=== PATIENT | female | born 1970 | race Caucasian/White ===

== ENCOUNTER 2017-12-22 07:46 | Emergency (ER) | payer MEDICAID, MEDICARE ==
[~2017-12-22] VITALS: Ht 182.9 cm; Wt 61.2 kg
--- NOTE | 2017-12-22 08:05 | ED Syncope ---
General Chief Complaint: Dizziness/Syncope Stated Complaint: PASSED OUT WHILE VISITING PT IN HOSP Source of Information: Patient Exam Limitations: No Limitations History of Present Illness Date Seen by Provider: Dec 22, 2017 Time Seen by Provider: 07:51 Initial Comments Pt to ER from ICU where she was present for the of her father. She was witnessed fainting by medical staff in the room and falling backwards striking the back of her head. She was unconscious for about a minute. Had high heart rate and low oxygen sats and was put on oxygen and transported down in a c- collar to the ER for evaluation. At the time she got here she was alert conscious oriented awake breathing spontaneously and taken off the oxygen and satting 97 200% on room air. She has no significant respiratory disease. No history of seizure disorder. She does have a history of anxiety and with the recent traumatic event of the of her father she says she did take 2 mg of Xanax last night to help her sleep and had some alcohol about 2 days ago. She's not had anything to eat today. She does not have a history of diabetes. She is having a headache that is mild and not requiring any pain medicine but no pain elsewhere. She has a history of 12 years ago ankle surgery on the right. She's had a gastric bypass. Report was given by Dr. Esquivel over the phone that she witnessed the syncope and collapse and there does not seem to be in any seizure like activity rather just panic attack. Allergies and Home Medications Patient Home Medication List Home Medication List Reviewed: Yes Constitutional: No chills, No diaphoresis EENTM: No ear discharge, No ear pain, No double vision Respiratory: No short of breath Cardiovascular: No chest pain, No palpitations Gastrointestinal: No abdominal pain, No constipation, No diarrhea, No nausea Genitourinary: No discharge, No dysuria : No Musculoskeletal: No back pain, No joint pain, No muscle pain, No muscle weakness, No neck pain Past Ronmavc-Fczihx-Cwcgcp Hx Patient Social History Alcohol Use: Occasionally Uses Recreational Drug Use: No Smoking Status: Former Smoker Type Used: Cigarettes Recent Foreign Travel: No Contact w/Someone Who Travel: No Physical Exam Vital Signs Capillary Refill : Height, Weight, BMI Height: '" Weight: lbs. oz. kg; BMI Method: General Appearance: No Apparent Distress, WD/WN HEENT: PERRL/EOMI, TMs Normal, Normal ENT Inspection, Pharynx Normal, Moist Mucous Membranes, Other (negative for hemotympanum any him, hematoma, garza sign, raccoon eyes, tenderness to the scalp or neck.) Neck: Full Range of Motion, Normal Inspection, Non Tender, Supple Cardiovascular: Regular Rate, Rhythm, No Edema, Normal Peripheral Pulses Respiratory: Chest Non Tender, Lungs Clear, Normal Breath Sounds, No Accessory Muscle Use, No Respiratory Distress Gastrointestinal: Normal Bowel Sounds, Non Tender, Soft Extremities: Normal Capillary Refill, Normal Inspection, No Calf Tenderness Neurologic/Psychiatric: Alert, Oriented x3, No Motor/Sensory Deficits, Other ( sad affect, appropriate) Cranial Nerves: Normal Hearing, Normal Speech, PERRL Coordination/Gait: Normal Finger to Nose, Normal Gait Motor/Sensory: No Motor Deficit, No Sensory Deficit, No Pronator Drift Skin: Normal Color, Warm/Dry Progress/Results/Core Measures Progress Progress Note : Time: 08:05 Progress Note Appears to be a vasovagal syncope response to a panic attack secondary to the recent of her father in the ICU today. Her cervical spine collar was cleared at 0755 by clinical examination without any C-spine tenderness on full range of motion under load. We have offered her imaging of her C-spine and head versus observation and she has appropriately chosen to pursue observation. For the next 12 hours she will be with family. She is declining further workup or anything for her headache and this time so were going to allow her to go with some return precautions. Departure Impression Primary Impression: Syncope and collapse Additional Impression: Panic attack Disposition: 01 HOME, SELF-CARE Condition: Stable Departure-Patient Inst. Decision time for Depature: 08:07 Referrals: NO,LOCAL PHYSICIAN (PCP/Family) Primary Care Physician Patient Instructions: Concussion in Adults, Syncope (Fainting) (DC) Add. Discharge Instructions: If you have weakness loss of control your bowels or bladder, unstable walking, further falls or other worrisome symptoms he should return to the nearest ER for further evaluation otherwise you may follow-up with your primary care doctor as needed. Drink plenty of fluids and use Tylenol and Motrin as necessary for headache. If you begin to have a swelling knot on the back your head you can use an ice pack. All discharge instructions reviewed with patient and/or family. Voiced understanding. NAOMIE BURCH Dec 22, 2017 08:04
[2017-12-22] MEDS ORDERED: DICL35CA (08:09)
[2017-12-22] MEDS ORDERED: ESTR2TAB (08:09)
[2017-12-22 08:10] VITALS: BP 123/80
--- OUTSIDE RECORDS SUMMARY | 2017-12-22 21:57 | XMS REPORT | Continuity of Care Document ---
Author Author [facility] Address Unknown Phone Unavailable Allergies There is no data. Medications There is no data. Problems Date Dx Coded Attending Type Code Diagnosis Diagnosed By 11/05/2013 JUAN TUCKER PHD 311 DEPRESSIVE DISORDER NOS Procedures Code [place] [address] PSYCH DIAGNOSTIC EVALUATION 11/05/2013 Results There is no data. Encounters ACCT No. Visit Date/Time Discharge Status Pt. Type Provider Facility Loc./Unit Complaint [id number] 11/05/2013 13:47:00 11/05/2013 23:59:59 CLS Outpatient JUAN TUCKER PHD
--- OUTSIDE RECORDS SUMMARY | 2017-12-22 21:57 | XMS REPORT ---
Author Author JENNI JULIO [employer] Address Unknown Phone Unavailable Care Team Providers Care Academic Coach Name Role Phone JENNI JULIO CP Unavailable Allergies No Known Allergies Problems Problem Type Condition Code Onset Dates Condition Status Assessment Dental examination V72.2 Active Problem Depressive disorder, not elsewhere classified 311 Active Medications No Known Medications Procedures Procedure Coding System Code Date Billing Notes on claim CPT-4 EC109 Jan 25, 2015 Results No Known Results Summary Purpose eClinicalWorks Submission
== END 2017-12-22 08:10 | disposition home or self-care (01) ==
LOC: EDUNIT# 07:46 → ER 07:47
DX: F41.0 Panic disorder [episodic paroxysmal anxiety] (principal); R55 Syncope and collapse; Z98.84 Bariatric surgery status; Z87.891 Personal history of nicotine dependence
CPT/HCPCS: 99283

== ENCOUNTER → 2019-10-29 | Outpatient (CLI) | payer BC ==
[~2019-10-29] MED LIST: DICL35CA; ESTR2TAB; HOLD METFORMIN - RECEIVED CONTRAST 20 ML VIAL IV SCH; IOHEXOL 350 MG/ML 100 ML (OMNIPAQUE 350) VIAL IV ONE; NS 100 ML (IVPB) BAG IV ONE
[2019-10-29 08:52] LABS: BUN/CREATININE RATIO 23; CREATININE SERUM 0.73 MG/DL (0.60-1.30); GFR ESTIMATED > 60
[2019-10-29] MEDS: CATHETER FLUSH 10 ML SYR IV PRN ×2 (09:26→09:27)
--- NOTE | 2019-10-29 09:58 | Diagnostic Imaging Report ---
PROCEDURE: CT neck soft tissue with contrast. TECHNIQUE: Multiple contiguous axial images were obtained through the neck after the administration of contrast. Auto Exposure Controls were utilized during the CT exam to meet ALARA standards for radiation dose reduction. INDICATION: Chronic nose, throat and ear pain. Patient does have family history of throat carcinoma. Correlation is made with prior CT soft tissue neck study from 09/12/2011. FINDINGS: Visualized intracranial structures are unremarkable. Posterior nasopharynx, oropharynx and larynx are unremarkable. Tiny low densities bilateral thyroid lobes are noted, stable to perhaps slightly smaller on today's exam. Submandibular and parotid glands appear to be symmetric. A normal-sized jugulodigastric and posterior cervical chain lymph nodes are noted. No pathologically enlarged nodes are detected. No fluid collections are detected. There is a small mucous retention cyst or polyp in the right maxillary sinus. IMPRESSION: Overall stable CT soft tissue neck study when compared with exam from 09/12/2011. No neck mass or lymphadenopathy is identified. Bilateral thyroid nodules are stable. Dictated by: Dictated on workstation # [id number]
== END ==
LOC: RAD FS 07:58
PROVIDERS: ATTEND Otolaryngology Otolaryngology/Facial Plastic Surgery
DX: E04.2 Nontoxic multinodular goiter (principal)
CPT/HCPCS: 36415; 70491; 82565; 84520

== ENCOUNTER 2019-11-20 19:45 | Emergency (ER) | payer BC ==
[~2019-11-20] VITALS: Ht 180.3 cm; Wt 74.8 kg
[~2019-11-20 19:45] MED LIST changes: -HOLD METFORMIN - RECEIVED CONTRAST 20 ML VIAL IV SCH; -IOHEXOL 350 MG/ML 100 ML (OMNIPAQUE 350) VIAL IV ONE; -NS 100 ML (IVPB) BAG IV ONE
--- OUTSIDE RECORDS SUMMARY | 2019-11-20 19:54 | XMS REPORT ---
Author Ruth Santoyo Organization [facility] Address [address] [place] [address] Care Team Providers Care Appeals Coordinator Name Role Phone JUAN TUCKER Unavailable PROBLEMS Type Condition ICD9-CM Code FLD91-CK Code Onset Dates Condition S tatus SNOMED Code Problem Depressive disorder, not elsewhere classified F32. 9 Active [id number] Problem Vitamin D deficiency E55.9 Active [id number] ALLERGIES No Information ENCOUNTERS Encounter Location Date Diagnosis [facility] [address] [facility] [place] [address] Apr, Acute left ankle pain M25.572 and Left foot pain M79.672 [address] [address] [place] [address] Apr, Tick bite, initial encounter W57.XXXA and Vitamin D deficiency E55.9 [address] [address] [place] [address] Apr, Vitamin D deficiency E55.9 a nd Tick bite, initial encounter W57.XXXA [address] [address] [place] [address] Apr, Tick bite, initial encounter W57.XXXA ; Vitamin D deficiency E55.9 and Well woman exam (no gynecological exam) Z00.00 [address] [address] [place] [address] Mar, Screening mammogram, encount er for Z12.31 [facility] [id number] [place] [id number] Aug, Dental examination Z01.20 [facility] [address] [id number] Jan, 2015 Dental examination V72.2 [facility] [address] [id number] [place] [address] Nov, [facility] [address] [id number] [place] [address] Nov, [facility] [address] [id number] [place] [address] Nov, [facility] [address] [id number] [place] [address] Nov, [facility] [id number] [place] [address] Nov, [facility] [id number] [place] [address] Nov, [facility] [id number] [place] [address] Oct, [facility] [address] [id number] [place] [address] Oct, [facility] [id number] [place] [address] Oct, [facility] [address] [id number] [place] [address] Oct, IMMUNIZATIONS No Known Immunizations SOCIAL HISTORY Never Assessed REASON FOR VISIT PLAN OF CARE VITAL SIGNS MEDICATIONS No Known Medications RESULTS No Results PROCEDURES Procedure Date Ordered Result Body Site PSYCH DIAGNOSTIC EVALUATION November 05, 2013 INSTRUCTIONS MEDICATIONS ADMINISTERED No Known Medications MEDICAL (GENERAL) HISTORY Type Description Date Medical History Myalgia Medical History Lymphangioma, any site Surgical History shattered ankle x7 08/23 Surgical History Hysterectomy 2013 Surgical History Gastric Bypass 2014 Surgical History Gallbladder 2014 Surgical History oral surgery 04/30/19 Hospitalization History surgery
--- OUTSIDE RECORDS SUMMARY | 2019-11-20 19:55 | XMS REPORT ---
Author Ruth Santoyo Organization [facility] Address [address] [place] [address] Care Team Providers Care Registered Nurse Cardiac Name Role Phone JUAN TUCKER Unavailable PROBLEMS Type Condition ICD9-CM Code TBE24-OQ Code Onset Dates Condition S tatus SNOMED Code Problem Depressive disorder, not elsewhere classified F32. 9 Active [id number] Problem Vitamin D deficiency E55.9 Active 46941622 ALLERGIES No Information ENCOUNTERS Encounter Location Date Diagnosis [facility] [address] [facility] [place] [address] Apr, Acute left ankle pain M25.572 and Left foot pain M79.672 [address] [place] [address] Apr, Tick bite, initial encounter W57.XXXA and Vitamin D deficiency E55.9 [address] [place] [address] Apr, Vitamin D deficiency E55.9 a nd Tick bite, initial encounter W57.XXXA [address] [place] [address] Apr, Tick bite, initial encounter W57.XXXA ; Vitamin D deficiency E55.9 and Well woman exam (no gynecological exam) Z00.00 [address] [place] [address] Mar, Screening mammogram, encount er for Z12.31 [facility] [id number] [place] [phone] Aug, Dental examination Z01.20 [facility] [id number] [place] [id number] 09 Jan, 2015 Dental examination V72.2 [facility] [address] [facility] [place] [address] Nov, [facility] [address] [facility] [place] [address] Nov, [facility] [address] [facility] [place] [address] Nov, [facility] [id number] [place] [address] Nov, [facility] [id number] [place] [address] Nov, [facility] [id number] [place] [address] Nov, [facility] [id number] [place] [address] Oct, [facility] [address] [id number] [place] [address] Oct, [facility] [id number] [place] [address] Oct, [facility] [address] [id number] [place] [address] Oct, IMMUNIZATIONS No Known Immunizations SOCIAL HISTORY Never Assessed REASON FOR VISIT PLAN OF CARE VITAL SIGNS MEDICATIONS No Known Medications RESULTS No Results PROCEDURES No Known procedures INSTRUCTIONS MEDICATIONS ADMINISTERED No Known Medications MEDICAL (GENERAL) HISTORY Type Description Date Medical History Myalgia Medical History Lymphangioma, any site Surgical History shattered ankle x7 08/23 Surgical History Hysterectomy 2013 Surgical History Gastric Bypass 2014 Surgical History Gallbladder 2013 Surgical History oral surgery 04/30/19 Hospitalization History surgery
--- OUTSIDE RECORDS SUMMARY | 2019-11-20 19:55 | XMS REPORT ---
Author Author Ruth TUCKER Organization [facility] Address [address] [place] [address] Care Team Providers Care Project Management Name Role Phone JUAN TUCKER Unavailable PROBLEMS Type Condition ICD9-CM Code VTL83-VH Code Onset Dates Condition S tatus SNOMED Code Problem Depressive disorder, not elsewhere classified 311 Active [id number] ALLERGIES No Information ENCOUNTERS Encounter Location Date Diagnosis [facility] [address] [id number] [address] [place] [id number] Aug, Dental examination Z01.20 [facility] [address] [id number] [address] [place] [id number] Jan, Dental examination V72.2 [facility] [address] [id number] [address] [place] [address] Nov, [facility] [address] [id number] [address] [place] [address] Nov, [facility] [address] [id number] [address] [place] [address] Nov, [facility] [address] [id number] [address] [place] [address] Nov, [facility] [address] [id number] [address] [place] [address] Nov, [facility] [address] [id number] [address] [place] [address] Nov, [facility] [address] [id number] [address] [place] [phone] Oct, [facility] [address] [id number] [address] [place] [phone] Oct, [facility] [address] [facility] [id number] [address], [place] [address] Oct, [facility] [address] [facility] [id number] [address], [place] [address] Oct, IMMUNIZATIONS No Known Immunizations SOCIAL HISTORY Never Assessed REASON FOR VISIT PLAN OF CARE VITAL SIGNS MEDICATIONS No Known Medications RESULTS No Results PROCEDURES No Known procedures INSTRUCTIONS MEDICATIONS ADMINISTERED No Known Medications MEDICAL (GENERAL) HISTORY Type Description Date Surgical History shattered ankle 08/23 Surgical History Hysterectomy 2013 Surgical History Gastric Bypass 2014 Surgical History Gallbladder 2014
--- OUTSIDE RECORDS SUMMARY | 2019-11-20 19:55 | XMS REPORT | Continuity of Care Document ---
Author Organization Unknown Address Unknown Phone Unavailable Allergies Active Description Code Type Severity Reaction Onset Reported/Identified Relationship to Patient Clinical Status Yes No Known Drug Allergies [id number] Drug Allergy Unknown N/A 12/22/2017 Medications There is no data. 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 [place]IZ[place] 65 mL/min/1.73m2 > OR = 60 eGFR 75 mL/min/1.73m2 > OR = 60 BUN/CREATININE RATIO NOT APPLICABLE (calc) 6-22 SODIUM 139 mmol/L 135-146 POTASSIUM 4.2 mmol/L 3.5-5.3 CHLORIDE 103 mmol/L 98-110 CARBON DIOXIDE 23 mmol/L 20-32 CALCIUM 9.1 mg/dL 8.6-10.4 PROTEIN, TOTAL 6.6 g/dL 6.1-8.1 ALBUMIN 4.1 g/dL 3.6-5.1 GLOBULIN 2.5 g/dL (calc) 1.9-3.7 ALBUMIN/GLOBULIN RATIO 1.6 (calc) 1.0-2. 5 BILIRUBIN, TOTAL 0.3 mg/dL 0.2-1.2 ALKALINE PHOSPHATASE 46 U/L 33-130 AST 16 U/L 10-35 ALT 15 U/L 6-29 CBC - 05/05/19 10:13 WHITE BLOOD CELL COUNT 6.5 Thousand/uL 3 .8-10.8 RED BLOOD CELL COUNT 4.11 Million/uL 3.8 0-5.10 HEMOGLOBIN 12.9 g/dL 11.7-15.5 HEMATOCRIT 38.7 % 35.0-45.0 MCV 94.2 fL 80.0-100.0 MCH 31.4 pg 27.0-33.0 MCHC 33.3 g/dL 32.0-36.0 RDW 12.6 % 11.0-15.0 PLATELET COUNT 249 Thousand/uL 140-400 MPV 10.8 fL 7.5-12.5 ABSOLUTE NEUTROPHILS 3998 cells/uL 1500- 7800 ABSOLUTE LYMPHOCYTES 2002 cells/uL 850-3 900 ABSOLUTE MONOCYTES 429 cells/uL 200-950 ABSOLUTE EOSINOPHILS 33 cells/uL 15-500 ABSOLUTE BASOPHILS 39 cells/uL 0-200 NEUTROPHILS 61.5 % NRG LYMPHOCYTES 30.8 % NRG MONOCYTES 6.6 % NRG EOSINOPHILS 0.5 % NRG BASOPHILS 0.6 % NRG LYME, TOTAL ANTIBODY/REFLEX WESTERN BLOT - 05/05/19 10:13 LYME AB SCREEN <0.90 index NRG BRUNO - 05/05/19 10:13 BRUNO SCREEN, IFA NEGATIVE NEGATIVE TSH - 05/05/19 10:13 TSH 0.43 mIU/L NRG VITAMIN D, 25-H - 05/05/19 10:13 VITAMIN D,25-OH,TOTAL,IA 31 ng/mL 30-10 0 [place] DISEASE, ANTIBODY PANEL - 10:13 LYME AB SCREEN <0.90 index NRG INTERPRETATION NRG A. PHAGOCYTOPHILUM AB (IGG) <1:64 NR G A. PHAGOCYTOPHILUM AB (IGM) <1:20 NR G INTERPRETATION NRG BABESIA DUNCANI (WA1) ANTIBODY (IGG), IFA <1:256 NRG BABESIA MICROTI AB (IGG) <1:64 titer NRG BABESIA MICROTI AB (IGM) <1:20 titer NRG INTERPRETATION NRG E. CHAFFEENSIS AB IGG <1:64 NRG E. CHAFFEENSIS AB IGM <1:20 NR COVID-19 ([facility]) - 09/14/19 12:00 CULTURE, THROAT - 09/14/19 12:08 CULTURE, THROAT SEE NOTE [facility] COVID-19 ([facility]) - 10/04/19 11:19 CMP - 10/04/19 16:57 GLUCOSE 95 mg/dL 65-99 UREA NITROGEN (BUN) 16 mg/dL 7-25 CREATININE 0.76 mg/dL 0.50-1.05 eGFR NON-AFR. [place] 91 mL/min/1.73m2 > OR = 60 eGFR 106 mL/min/1.73m2 > OR = 60 BUN/CREATININE RATIO NOT APPLICABLE (calc) 6-22 SODIUM 141 mmol/L 135-146 POTASSIUM 4.1 mmol/L 3.5-5.3 CHLORIDE 106 mmol/L 98-110 CARBON DIOXIDE 25 mmol/L 20-32 CALCIUM 8.8 mg/dL 8.6-10.4 PROTEIN, TOTAL 6.7 g/dL 6.1-8.1 ALBUMIN 4.1 g/dL 3.6-5.1 GLOBULIN 2.6 g/dL (calc) 1.9-3.7 ALBUMIN/GLOBULIN RATIO 1.6 (calc) 1.0-2. 5 BILIRUBIN, TOTAL 0.3 mg/dL 0.2-1.2 ALKALINE PHOSPHATASE 60 U/L 37-153 AST 15 U/L 10-35 ALT 15 U/L 6-29 CBC w/MANUAL DIFF - 10/04/19 16:57 WHITE BLOOD CELL COUNT 5.9 Thousand/uL 3 .8-10.8 RED BLOOD CELL COUNT 4.07 Million/uL 3.8 0-5.10 HEMOGLOBIN 12.5 g/dL 11.7-15.5 HEMATOCRIT 37.2 % 35.0-45.0 MCV 91.4 fL 80.0-100.0 MCH 30.7 pg 27.0-33.0 MCHC 33.6 g/dL 32.0-36.0 RDW 12.3 % 11.0-15.0 PLATELET COUNT 222 Thousand/uL 140-400 MPV 10.3 fL 7.5-12.5 ABSOLUTE NEUTROPHILS 3098 cells/uL 1500- 7800 ABSOLUTE MONOCYTES 407 cells/uL 200-950 ABSOLUTE EOSINOPHILS 0 cells/uL 15-500 ABSOLUTE BASOPHILS 0 cells/uL 0-200 NEUTROPHILS 52.5 % NRG LYMPHOCYTES 38.6 % NRG MONOCYTES 6.9 % NRG EOSINOPHILS 0 % NRG BASOPHILS 0 % NRG ABSOLUTE BAND NEUTROPHILS 118 cells/uL 0 -750 ABSOLUTE LYMPHOCYTES 2277 cells/uL 850-3 900 BAND NEUTROPHILS 2.0 % NRG PLATELET ESTIMATION ADEQUATE ADEQUATE Encounters ACCT No. Visit Date/Time Discharge Status Pt. Type Provider Facility Loc./Unit Complaint [id number] 11/05/2013 13:47:00 11/05/2013 23:59: 59 CLS Outpatient CAITLIN JOSUE, JUAN Nation [id number] 11/03/2019 14:30:00 11/03/2019 23:59:5 9 CLS Outpatient SAUL, CINDY Rudolph [facility] [id number] 10/04/2019 16:40:00 Document Registration [id number] 10/04/2019 10:40:00 Document Registration [id number] 09/14/2019 17:40:00 Document Registration [id number] 05/05/2019 09:30:00 Document Registration [id number] 10/29/2019 07:58:00 020 23:59:59 CLS Outpatient BROOKLYNN MILLER, KEYONA Son Via [facility] [place] RAD FS ABNORMAL EAR/THROAT GARIMA N [id number] 12/22/2017 07:47:00 Document Registration
--- OUTSIDE RECORDS SUMMARY | 2019-11-20 19:55 | XMS REPORT ---
Author Author Ruth TUCKER Organization [facility] Address [address] [place] [address] Care Team Providers Care Environmental Associate Name Role Phone JAUN TUCKER Unavailable PROBLEMS Type Condition ICD9-CM Code XLW12-ZQ Code Onset Dates Condition S tatus SNOMED Code Problem Depressive disorder, not elsewhere classified 311 Active 40009959 ALLERGIES No Information ENCOUNTERS Encounter Location Date Diagnosis [facility] [address] [id number] [address] [place] [id number] Aug, Dental examination Z01.20 [facility] [address] [id number] [address] [place] [id number] Jan, Dental examination V72.2 [facility] [address] [id number] [address] [place] [phone] Nov, [facility] [address] [id number] [address] [place] [phone] Nov, [facility] [address] [id number] [address] [place] [phone] Nov, [facility] [address] [id number] [address] [place] [phone] Nov, [facility] [address] [id number] [address] [place] [phone] Nov, [facility] [address] [id number] [address] [place] [address] Nov, [facility] [address] [id number] [address] [place] [phone] Oct, [facility] [address] [id number] [address] [place] [phone] Oct, [facility] [address] [facility] [id number] [address], [place] [address] Oct, [facility] [address] [facility] [id number] [address], [place] [address] Oct, IMMUNIZATIONS No Known Immunizations SOCIAL HISTORY [...]
--- OUTSIDE RECORDS SUMMARY | 2019-11-20 19:55 | XMS REPORT ---
Author Author Ruth TUCKER Organization [facility] Address [address] [place] [address] Care Team Providers Care Wool Washer Name Role Phone JUAN TUCKER Unavailable PROBLEMS Type Condition ICD9-CM Code [id number] Code Onset Dates Condition S tatus SNOMED Code Problem Depressive disorder, not elsewhere classified 311 Active [id number] ALLERGIES No Information ENCOUNTERS Encounter Location Date Diagnosis [facility] [address] [id number] [address] [place] [id number] Aug, Dental examination Z01.20 [facility] [address] [id number] [address] [place] [phone] Jan, Dental examination V72.2 [facility] [address] [id number] [address] [place] [id number] Nov, [facility] [address] [id number] [address] [place] [phone] Nov, [facility] [address] [id number] [address] [place] [id number] Nov, [facility] [address] [id number] [address] [place] [phone] Nov, [facility] [address] [id number] [address] [place] [phone] Nov, [facility] [address] [id number] [address] [place] [phone] Nov, [facility] [address] [id number] [address] [place] [phone] Oct, [facility] [address] [id number] [address] [place] [phone] Oct, [facility] [address] [facility] [id number] [address] [address] Oct, [facility] [address] [facility] [id number] [address], [place] [address] Oct, IMMUNIZATIONS No Known Immunizations SOCIAL HISTORY [...]
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
--- NOTE | 2019-11-20 20:48 | Diagnostic Imaging Report ---
EXAMINATION: Thoracic spine radiographs, 3 views. COMPARISON: None. HISTORY: 48-year-old female, injury. Back pain. FINDINGS: There is no identified acute fracture. The alignment of the thoracic spine is unremarkable. The thoracic disc heights are relatively well preserved. Right upper quadrant surgical clips most likely relate to prior cholecystectomy. There are sutures at the level of the upper abdomen just to the left of midline. IMPRESSION: Unremarkable radiographs of the thoracic spine. Dictated by: Dictated on workstation # [id number]
--- NOTE | 2019-11-20 20:56 | Diagnostic Imaging Report ---
EXAMINATION: Lumbar spine radiographs, 2 views. COMPARISON: None. HISTORY: 48-year-old female, injury. Back pain. 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 If spinal intervention is to be performed in the future, recommend careful correlation with levels. There is no identified compression deformity or fracture. The lumbar disc heights are well preserved. The facet joints are grossly unremarkable. Unremarkable appearance of the sacroiliac joints. IMPRESSION: 1. No identified acute abnormality of the lumbar spine. 2. 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 If spinal intervention is to be performed in the future, recommend careful correlation with levels. Dictated by: Dictated on workstation # [id number]
--- NOTE | 2019-11-20 20:58 | Diagnostic Imaging Report ---
PROCEDURE: CT head and CT cervical spine without contrast. TECHNIQUE: Multiple contiguous axial images were obtained through the brain and cervical spine without the use of intravenous contrast. Sagittal and coronal reformations through the cervical spine were then performed. Auto Exposure Controls were utilized during the CT exam to meet ALARA standards for radiation dose reduction. INDICATION: Injury, accident, pain. COMPARISON: CT of the neck dated November 20, 2019. FINDINGS: No intracranial hemorrhage. No intracranial mass, mass effect, midline shift, herniation, hydrocephalus or extra-axial fluid collection. No CT evidence of an acute ischemic infarction. The orbits are unremarkable. The paranasal sinuses are clear. The calvarium and extracalvarial soft tissues are unremarkable. Slight reversal of the normal cervical lordosis, though this is stable from the prior examination. No significant anterolisthesis or retrolisthesis. Alignment of the atlantooccipital joint is well maintained. Vertebral body heights are well maintained. Mild disc space height loss at C5/C6. No acute fracture or dislocation. No destructive osseous process. Mild scattered degenerative changes without severe osseous central canal stenosis. The thyroid gland is diffusely heterogeneous and nodular, including an 8 mm nodule within the right thyroid lobe. Paraspinal soft tissues otherwise appears stable from the prior exam and are unremarkable. IMPRESSION: 1. No acute intracranial abnormality. 2. No acute osseous abnormality within the cervical spine with mild degenerative changes and stable reversal of the normal cervical lordosis. 3. Stable thyroid gland heterogeneity and nodularity. Dictated by: Dictated on workstation # [id number]
[2019-11-20] MEDS ORDERED: ONDANSETRON 4 MG (ZOFRAN) ORAL DISSOLVE TAB PO STA (21:09)
[2019-11-20] MEDS ORDERED: IBUP-1780 PO (21:12)
[2019-11-20] MEDS ORDERED: CYCL10TA9 PO (21:12)
[2019-11-20 21:15] VITALS: BP 113/60
[2019-11-20] MEDS ORDERED: IBUPROFEN 800 MG (MOTRIN) TAB PO ONE (21:15)
== END 2019-11-20 21:16 | disposition home or self-care (01) ==
LOC: EDUNIT# 19:45 → ER FS 19:50
DX: S06.9X9A Unspecified intracranial injury with loss of consciousness of unspecified duration, initial encounter (principal); S16.1XXA Strain of muscle, fascia and tendon at neck level, initial encounter; S29.019A Strain of muscle and tendon of unspecified wall of thorax, initial encounter; S39.012A Strain of muscle, fascia and tendon of lower back, initial encounter; Z87.891 Personal history of nicotine dependence; V94.89XA Other water transport accident, initial encounter
CPT/HCPCS: 70450; 72070; 72100; 72125

== ENCOUNTER 2022-03-10 14:36 | Emergency (ER) | payer BC ==
[~2022-03-10] VITALS: Ht 180 cm; Wt 79.3 kg
[~2022-03-10 14:36] MED LIST changes: +CYCL10TA25 PO; -ESTR2TAB; +ESTR2TAB3; +IBUP-1780 PO
[2022-03-10] MEDS ORDERED: morphine INJ 10 MG/ML 1ML (SYR OR VIAL) ONE (14:46)
[2022-03-10] MEDS ORDERED: morphine INJ 10 MG/ML 1ML (SYR OR VIAL) IVP STA (14:47)
[2022-03-10] MEDS ORDERED: ONDANSETRON 4 MG (ZOFRAN) ORAL DISSOLVE TAB ONE (14:47)
--- NOTE | 2022-03-10 14:49 | ED Trauma-Multisystem ---
General Chief Complaint: Trauma-Non Activation Stated Complaint: FALL Source of Information: Patient, EMS Exam Limitations: No Limitations History of Present Illness Date Seen by Provider: Mar 10, 2022 Time Seen by Provider: 14:38 Initial Comments Ruth is a 51-year-old female who presents to the emergency room with a chief complaint of low back pain and left hip pain after falling from a horse just prior to arrival. Patient states that she is not sure what spooked the horse but she states that she was on it 1 minute and the next minute she found herself on the ground. She states that she did not lose consciousness. She does not have a headache. No vision changes. She denies neck pain, chest pain, abdomina l pain. No upper extremity or lower extremity discomfort. No numbness, weakness or tingling. She complains of intense pain to the backside of her left hip that does not radiate. Also her low back. She is not anticoagulated on any medications. No recent illnesses. She arrives on EMS stretcher without cervical spine immobilization. All other review of systems reviewed and negative except as stated. Occurred: Just Prior to Arrival Severity: Severe Pain/Injury Location: Pelvis (left) Method of Injury: Fall (from horse 15 hands) Modifying Factors: Immobilization; No Jarring, No Movement Loss of Consciousness: No Loss of Consciousness Associated Symptoms (Fall): Nausea/Vomiting (nausea without vomiting) Allergies and Home Medications Allergies Coded Allergies: No Known Drug Allergies (Unverified , 12/22/17) Patient Home Medication List Home Medication List Reviewed: Yes Cyclobenzaprine HCl (Cyclobenzaprine HCl) 10 Mg Tablet, 10 MG PO Q8H PRN for SPASMS Prescribed by: RASHMI LOPEZ on 11/20/192111 Diclofenac Submicronized (Zorvolex) 35 Mg Capsule, (Reported) Entered as Reported by: MEAGHAN LAM on 12/22/17 08 Estradiol (Estradiol Tablet) 2 Mg Tablet, (Reported) Entered as Reported by: MEAGHAN LAM on 12/22/17808 Ibuprofen (Ibuprofen) 800 Mg Tablet, 800 MG PO Q8H PRN for PAIN Prescribed by: RASHMI LOPEZ on 11/20/192111 Oxycodone HCl/Acetaminophen (Percocet 7.5-325 mg Tablet) 1 Each Tablet, 1 TAB PO Q6H PRN for PAIN-MODERATE Prescribed by: EVANS STARR on 03/10/22 1644 Review of Systems Review of Systems Constitutional: see HPI Eyes: No Symptoms Reported Ears: No Symptoms Reported Nose: No Symptoms Reported Mouth: No Symptoms Reported Throat: No Symptoms to Report Respiratory: no symptoms reported Cardiovascular: No Symptoms Reported Gastrointestinal: nausea Musculoskeletal: back pain (lowe), joint pain (left hip) Skin: no symptoms reported Psychiatric/Neurological: No Symptoms Reported All Other Systems Reviewed Negative Unless Noted: Yes Past Fplxvbv-Qqlayt-Edzhan Hx Patient Social History Tobacco Use?: No Substance use?: No Alcohol Use?: Yes Alcohol Frequency: Couple times a week Pt feels they are or have been: No Seasonal Allergies Seasonal Allergies: No Past Medical History Gallbladder, Hysterectomy, Orthopedic Respiratory: No Cardiac: No Neurological: No [employer] History: Hysterectomy Genitourinary: No Gastrointestinal: Yes (GASTRIC SLEEVE) Musculoskeletal: Yes (RIGHT ANKLE AND LEG ) Fractures HEENT: No Cancer: No Psychosocial: No Integumentary: No Blood Disorders: No Physical Exam Vital Signs Vital Signs - First Documented 03/10/22 14:50 Temp 37.1 Pulse 67 Resp 18 B/P (MAP) 115/67 (83) Pulse Ox 98 Height, Weight, BMI Height: 6'0" Weight: 135lbs. oz. 61.645965ht; 23.00 BMI Method:Stated General Appearance: WD/WN, Anxious, Thin Head: No Evidence of Injury; No Chen's Sign, No Contusions, No Ecchymosis, No Lacerations, No Raccoon Eyes, No Swelling, No Tenderness Eyes: Bilateral Eye Normal Inspection, Bilateral Eye PERRL, Bilateral Eye EOMI Ears, Nose, Throat: Hearing Grossly Normal, No Evidence of ENT Injury, No Denta l Injury Neck: Normal Inspection, Non Tender, Supple Cardiovascular: Regular Rate, Rhythm Respiratory: Chest Non Tender, Lungs Clear, Normal Breath Sounds, No Accessory Muscle Use, No Respiratory Distress Gastrointestinal: Normal Bowel Sounds, Non Tender, Soft Back: Normal Inspection, Vertebral Tenderness (over Lumbar L3-5 and left posterior superior iliac crest) Extremity: Normal Capillary Refill, Normal Inspection, Normal Range of Motion, Non Tender, No Calf Tenderness, Other (left lateral hip tenderness; tenderness to compression left ASIS) Neurologic/Psychiatric: Alert, Oriented x3, No Motor/Sensory Deficits, Normal Mood/Affect, motel food service supervisor II-XII Norm as Tested Skin: Normal Color, Warm/Dry, Other (contusion/ecchymoses left lower back just above post sup iliac crest) [place] Coma Score Best Eye Response (Rachel): (4) Open Spontaneously Best Verbal Response (Rachel): (5) Oriented Best Motor Response ([place]): (6) Obeys Commands Progress/Results/Core Measures Results/Orders Lab Results Laboratory Tests Test 03/10/22 15:04 Range/Units White Blood Count 11.7 H 4.3-11.0 10^3/uL Red Blood Count 3.94 3.80-5.11 10^6/uL Hemoglobin 12.3 11.5-16.0 g/dL Hematocrit 37 35-52 % Mean Corpuscular Volume 93 80-99 fL Mean Corpuscular Hemoglobin 31 25-34 pg Mean Corpuscular Hemoglobin Concent 34 32-36 g/dL Red Cell Distribution Width 12.6 10.0-14.5 % Platelet Count 221 130-400 10^3/uL Mean Platelet Volume 10.2 9.0-12.2 fL Immature Granulocyte % (Auto) 2 % Neutrophils (%) (Auto) 78 H 42-75 % Lymphocytes (%) (Auto) 14 12-44 % Monocytes (%) (Auto) 5 0-12 % Eosinophils (%) (Auto) 0 0-10 % Basophils (%) (Auto) 0 0-10 % Neutrophils # (Auto) 9.1 H 1.8-7.8 10^3/uL Lymphocytes # (Auto) 1.6 1.0-4.0 10^3/uL Monocytes # (Auto) 0.6 0.0-1.0 10^3/uL Eosinophils # (Auto) 0.0 0.0-0.3 10^3/uL Basophils # (Auto) 0.1 0.0-0.1 10^3/uL Immature Granulocyte # (Auto) 0.2 H 0.0-0.1 10^3/uL Sodium Level 140 135-145 MMOL/L Potassium Level 3.6 3.6-5.0 MMOL/L Chloride Level 107 98-107 MMOL/L Carbon Dioxide Level 22 21-32 MMOL/L Anion Gap 11 5-14 MMOL/L Blood Urea Nitrogen 15 7-18 MG/DL Creatinine 0.81 0.60-1.30 MG/DL Estimat Glomerular Filtration Rate 87 BUN/Creatinine Ratio 19 Glucose Level 103 70-105 MG/DL Calcium Level 9.0 8.5-10.1 MG/DL Corrected Calcium 9.2 8.5-10.1 MG/DL Total Bilirubin 0.4 0.1-1.0 MG/DL Aspartate Amino Transf (AST/SGOT) 27 5-34 U/L Alanine Aminotransferase (ALT/SGPT) 15 0-55 U/L Alkaline Phosphatase 58 40-136 U/L Total Protein 6.7 6.4-8.2 GM/DL Albumin 3.8 3.2-4.5 GM/DL My Orders Orders - EVNAS STARR MD Morphine Injection (Morphine Injection (03/10/22 14:47) Ondansetron Oral Dissolve Tab (Zofran (03/10/22 15:00) Morphine Injection (Morphine Injection (03/10/22 14:46) Ondansetron Oral Dissolve Tab (Zofran (03/10/22 14:47) Ed Iv/Invasive Line Start (03/10/22 14:49) Cbc With Automated Diff (03/10/22 14:49) Comprehensive Metabolic Panel (03/10/22 14:49) Ct Abdomen/Pelvis W (03/10/22 14:49) Chest 1 View, Ap/Pa Only (03/10/22 14:49) Pelvis 1 To 2 Views (03/10/22 14:49) Ct Lumbar Spine Wo (03/10/22 14:49) Morphine Injection (Morphine Injection (03/10/22 14:55) Iohexol Injection (Omnipaque 350 Mg/Ml 1 (03/10/22 15:30) Received Contrast (Hold Metformin- Contr (03/10/22 15:30) Ns (Ivpb) (Sodium Chloride 0.9% Ivpb Bag (03/10/22 15:30) Ketorolac Injection (Toradol Injection) (03/10/22 16:00) Orphenadrine Inj (Ed Only) (Norflex Inje (03/10/22 16:00) Oxycodone/Apap 7.5/325mg Tab (Percocet (03/10/22 16:45) Medications Given in ED Vital Signs/I&O 03/10/22 03/10/22 03/10/22 14:50 15:13 18:00 Temp 37.1 37.1 Pulse 67 67 80 Resp 18 18 16 B/P (MAP) 115/67 (83) 115/67 (83) 100/65 Pulse Ox 98 98 98 Diagnostic Imaging Diagonstic Imaging: Xray Comments [facility] [place], [place] NAME: RUTH MONSON [facility] REC#: [id number] PT STATUS: REG ER : 1970 PHYSICIAN: EVANS STARR MD ADMIT DATE: 03/10/22/ER Signed Date of Exam:03/10/22 PELVIS 1 TO 2 VIEWS Pelvis 1 to 2 views INDICATION: Pelvic injury. COMPARISON: CT abdomen and pelvis from earlier the same day. TECHNIQUE: AP view of the pelvis. FINDINGS: Contrast material is present in the urinary bladder from recent CT abdomen and pelvis. No displaced fracture within the pelvis. Proximal femurs are intact. Symphysis pubis and SI joints are normal in alignment. IMPRESSION: No acute fracture or traumatic malalignment of the pelvis. Dictated by: Dictated on workstation # [id number] Dict: 03/10/22 1546 Trans: 03/10/22 155 [facility] [id number] Interpreted by: RUI CAMACHO MD Electronically signed by: RUI CAMACHO MD 03/10/22 1558 Diagonstic Imaging: CT Comments [facility] [place] [place], [place] NAME: RUTH MONSON [facility] REC#: [id number] PT STATUS: REG ER : 1970 PHYSICIAN: EVANS STARR MD ADMIT DATE: 03/10/22/ER Draft Date of Exam:03/10/22 CT LUMBAR SPINE WO PROCEDURE: CT lumbar spine without contrast. TECHNIQUE: Multiple contiguous axial images were obtained through the lumbar spine without the use of intravenous contrast. Sagittal and coronal reformations were then performed. Auto Exposure Controls were utilized during the CT exam to meet ALARA standards for radiation dose reduction. INDICATION: Fall from horse. Left lower back pain. COMPARISON: CT abdomen and pelvis without contrast also performed today. Lumbar spine radiographs 11/20/2019. FINDINGS: Normal alignment. Vertebral body heights are preserved. No fracture. Small central depression in the superior endplate of L2 appears chronic and likely due to a Schmorl's node. Minimal spondylotic changes. No evidence of high-grade spinal canal stenosis by CT. The visualized pelvis is intact. Partially visualized fluid collection compatible with a hematoma in the subcutaneous soft tissues dorsally along the midline measuring up to 13.6 cm in the superior-inferior dimension. IMPRESSION: 1. No acute CT finding in the lumbar spine. 2. Hematoma in the subcutaneous soft tissues along the midline dorsally is partially visualized. Dictated on workstation # [id number] Dict: 03/10/22 1540 Trans: 03/10/221547 [facility] [id number] Interpreted by: THALIA OCAMPO MD Electronically signed by: Diagonstic Imaging: Xray Plain Films/CT/US/NM/MRI: chest Comments [facility] [place] [place], [place] NAME: RUTH MONSON [facility] REC#: [id number] PT STATUS: REG ER : 1970 PHYSICIAN: EVANS STARR MD ADMIT DATE: 03/10/22/ER Signed Date of Exam:03/10/22 CHEST 1 VIEW, AP/PA ONLY CHEST 1 VIEW, AP/PA ONLY Indication: Chest pain. Comparison: None available. Findings: No focal airspace disease in the visualized lungs. No pleural effusion or pneumothorax. Normal cardiomediastinal silhouette. Impression: 1. No acute cardiopulmonary process by portable radiography. 2. Please note the left basilar pulmonary opacities seen on CT abdomen are not radiographically apparent. Dictated by: Dictated on workstation # [id number] Dict: 03/10/22 1545 Trans: 03/10/221545 [facility] [id number] Interpreted by: RUI CAMACHO MD Electronically signed by: RUI CAMACHO MD 03/10/22 154 Diagonstic Imaging: CT Plain Films/CT/US/NM/MRI: abdomen, pelvis Comments [facility] [place] [place] NAME: RUTH MONSON MED REC#: [id number] PT STATUS: REG ER : 1970 PHYSICIAN: EVANS STARR MD ADMIT DATE: 03/10/22/ER Draft Date of Exam:03/10/22 CT ABDOMEN/PELVIS W PROCEDURE: CT abdomen and pelvis with contrast. TECHNIQUE: Multiple contiguous axial images were obtained through the abdomen and pelvis after administration of intravenous contrast. Auto Exposure Controls were utilized during the CT exam to meet ALARA standards for radiation dose reduction. All CT scans use one or more of the following dose optimizing techniques: automated exposure control, MA and/or KvP adjustment based on patient size and exam type or iterative reconstruction. INDICATION: Fall from horse. Left lower back pain. COMPARISON: None. FINDINGS: Groundglass airspace opacity in the left lung base. Cholecystectomy. Small esophageal hiatal hernia. Postoperative changes in the stomach. The liver, pancreas, spleen, renals, kidneys, collecting systems and bladder are negative. Hysterectomy. No evidence of appendicitis. No free intraperitoneal air or fluid. No lymphadenopathy. No evidence of bowel obstruction or injury. Mild colonic diverticulosis without evidence of active diverticulitis. Soft tissue stranding in the subcutaneous tissues overlying the posterior left torso and gluteal region. This is most focal along the midline at the level of L4 where there is an 8.0 x 2.4 x 13.7 cm fluid collection compatible with a hematoma. No acute osseous finding. IMPRESSION: 1. Soft tissue stranding in the subcutaneous tissues overlying the posterior left torso and gluteal region consistent with contusion. There is also a more circumscribed fluid collection along the midline centered at the level of L4 measuring up to 13.7 cm compatible with a hematoma. 2. Airspace opacity in the left lung base could be due to aspiration or pulmonary contusion given the history of trauma. Infectious pneumonitis could have a similar appearance. 3. No acute osseous finding. Dictated on workstation # [id number] Dict: 03/10/22 1533 Trans: 03/10/22 1543 [facility] [id number] Interpreted by: THALIA OCAMPO MD Electronically signed by: Departure Impression Primary Impression: Traumatic hematoma of lower back Qualified Codes: S30.0XXA - Contusion of lower back and pelvis, initial encounter Disposition: 01 HOME, SELF-CARE Condition: Stable Departure-Patient Inst. Decision time for Depature: 16:11 Referrals: NO,LOCAL PHYSICIAN (PCP/Family) Primary Care Physician Patient Instructions: HEMATOMA Add. Discharge Instructions: Ice packs to the sore areas of your low back and left hip 20 minutes at a time every 2-4 hours as needed for pain. Alternate extra strength Tylenol and ibuprofen as needed for pain. I have given you a prescription for some percocet which is a narcotic. You can take 1 of these tablets every 6 hours as needed for more severe pain. You can take 1 extra strength Tylenol with a percocet as well. If you develop increasing redness or swelling in the area or any other associated worsening symptoms please come back to the emergency department for reevaluation. Rest, no vigorous exercise or horseback riding until the hematoma/pain is healed. Scripts Oxycodone HCl/Acetaminophen (Percocet 7.5-325 mg Tablet) 1 Each Tablet 1 TAB PO Q6H PRN for PAIN-MODERATE MDD 4 TABS, #15 TAB Prov: EVANS STARR MD 03/10/22 Work/School Note: Work Release Form Date Seen in the Emergency Department: Mar 10, 2022 Return to Work: Mar 14, 2022 EVANS STARR MD Mar 10, 2022 14:49
[2022-03-10] MEDS ORDERED: morphine INJ 10 MG/ML 1ML (SYR OR VIAL) IM STA (14:55)
[2022-03-10] MEDS ORDERED: ONDANSETRON 4 MG (ZOFRAN) ORAL DISSOLVE TAB PO ONE (15:00)
[2022-03-10 15:16] LABS: BASOPHILS # (AUTO) 0.1 10^3/uL (0.0-0.1); BASOPHILS % (AUTO) 0 % (0-10); EOSINOPHILS % (AUTO) 0 % (0-10); HEMATOCRIT 37 % (35-52); HEMOGLOBIN 12.3 g/dL (11.5-16.0); LYMPHOCYTES # (AUTO) 1.6 10^3/uL (1.0-4.0); LYMPHOCYTES % (AUTO) 14 % (12-44); MEAN CORPUSCULAR HEMOGLOBIN 31 pg (25-34); MEAN CORPUSCULAR HGB CONC 34 g/dL (32-36); MEAN CORPUSCULAR VOLUME 93 fL (80-99); MEAN PLATELET VOLUME 10.2 fL (9.0-12.2); MONOCYTES # (AUTO) 0.6 10^3/uL (0.0-1.0); MONOCYTES % (AUTO) 5 % (0-12); NEUTROPHILS # (AUTO) 9.1 10^3/uL (1.8-7.8); NEUTROPHILS % (AUTO) 78 % (42-75); PLATELET COUNT 221 10^3/uL (130-400); WHITE BLOOD COUNT 11.7 10^3/uL (4.3-11.0)
[2022-03-10 15:23] LABS: ALBUMIN 3.8 GM/DL (3.2-4.5); POTASSIUM 3.6 MMOL/L (3.6-5.0)
[2022-03-10 15:26] LABS: TOTAL PROTEIN 6.7 GM/DL (6.4-8.2)
[2022-03-10 15:28] LABS: BILIRUBIN,TOTAL 0.4 MG/DL (0.1-1.0)
[2022-03-10 15:29] LABS: CREATININE SERUM 0.81 MG/DL (0.60-1.30)
[2022-03-10] MEDS ORDERED: IOHEXOL 350 MG/ML 100 ML (OMNIPAQUE 350) VIAL IV ONE (15:30)
[2022-03-10] MEDS ORDERED: HOLD METFORMIN - RECEIVED CONTRAST 20 ML VIAL IV SCH (15:30)
[2022-03-10] MEDS ORDERED: NS 100 ML (IVPB) BAG IV ONE (15:30)
--- NOTE | 2022-03-10 15:43 | Diagnostic Imaging Report ---
PROCEDURE: CT abdomen and pelvis with contrast. TECHNIQUE: Multiple contiguous axial images were obtained through the abdomen and pelvis after administration of intravenous contrast. Auto Exposure Controls were utilized during the CT exam to meet ALARA standards for radiation dose reduction. All CT scans use one or more of the following dose optimizing techniques: automated exposure control, MA and/or KvP adjustment based on patient size and exam type or iterative reconstruction. INDICATION: Fall from horse. Left lower back pain. COMPARISON: None. FINDINGS: Groundglass airspace opacity in the left lung base. Cholecystectomy. Small esophageal hiatal hernia. Postoperative changes in the stomach. The liver, pancreas, spleen, renals, kidneys, collecting systems and bladder are negative. Hysterectomy. No evidence of appendicitis. No free intraperitoneal air or fluid. No lymphadenopathy. No evidence of bowel obstruction or injury. Mild colonic diverticulosis without evidence of active diverticulitis. Soft tissue stranding in the subcutaneous tissues overlying the posterior left torso and gluteal region. This is most focal along the midline at the level of L4 where there is an 8.0 x 2.4 x 13.7 cm fluid collection compatible with a hematoma. No acute osseous finding. IMPRESSION: 1. Soft tissue stranding in the subcutaneous tissues overlying the posterior left torso and gluteal region consistent with contusion. There is also a more circumscribed fluid collection along the midline centered at the level of L4 measuring up to 13.7 cm compatible with a hematoma. 2. Airspace opacity in the left lung base could be due to aspiration or pulmonary contusion given the history of trauma. Infectious pneumonitis could have a similar appearance. 3. No acute osseous finding. Dictated by: Dictated on workstation # [id number]
--- NOTE | 2022-03-10 15:48 | Diagnostic Imaging Report ---
CHEST 1 VIEW, AP/PA ONLY Indication: Chest pain. Comparison: None available. Findings: No focal airspace disease in the visualized lungs. No pleural effusion or pneumothorax. Normal cardiomediastinal silhouette. Impression: 1. No acute cardiopulmonary process by portable radiography. 2. Please note the left basilar pulmonary opacities seen on CT abdomen are not radiographically apparent. Dictated by: Dictated on workstation # [id number]
--- NOTE | 2022-03-10 15:48 | Diagnostic Imaging Report ---
PROCEDURE: CT lumbar spine without contrast. TECHNIQUE: Multiple contiguous axial images were obtained through the lumbar spine without the use of intravenous contrast. Sagittal and coronal reformations were then performed. Auto Exposure Controls were utilized during the CT exam to meet ALARA standards for radiation dose reduction. INDICATION: Fall from horse. Left lower back pain. COMPARISON: CT abdomen and pelvis without contrast also performed today. Lumbar spine radiographs 11/20/2019. FINDINGS: Normal alignment. Vertebral body heights are preserved. No fracture. Small central depression in the superior endplate of L2 appears chronic and likely due to a Schmorl's node. Minimal spondylotic changes. No evidence of high-grade spinal canal stenosis by CT. The visualized pelvis is intact. Partially visualized fluid collection compatible with a hematoma in the subcutaneous soft tissues dorsally along the midline measuring up to 13.6 cm in the superior-inferior dimension. IMPRESSION: 1. No acute CT finding in the lumbar spine. 2. Hematoma in the subcutaneous soft tissues along the midline dorsally is partially visualized. Dictated by: Dictated on workstation # [id number]
--- NOTE | 2022-03-10 15:50 | Diagnostic Imaging Report ---
Pelvis 1 to 2 views INDICATION: Pelvic injury. COMPARISON: CT abdomen and pelvis from earlier the same day. TECHNIQUE: AP view of the pelvis. FINDINGS: Contrast material is present in the urinary bladder from recent CT abdomen and pelvis. No displaced fracture within the pelvis. Proximal femurs are intact. Symphysis pubis and SI joints are normal in alignment. IMPRESSION: No acute fracture or traumatic malalignment of the pelvis. Dictated by: Dictated on workstation # [id number]
[2022-03-10] MEDS ORDERED: KETOROLAC 30 MG/ML VIAL IVP ONE (16:00)
[2022-03-10] MEDS ORDERED: ORPHENADRINE 60 MG/2 ML (NORFLEX) AMP (ED ONLY) IV ONE (16:00)
[2022-03-10] MEDS ORDERED: OXYC1TAB16 PO (16:43)
[2022-03-10] MEDS ORDERED: oxyCODONE/APAP 7.5-325 MG (PERCOCET 7.5) TABLET PO ONE (16:45)
[2022-03-10 18:00] VITALS: BP 100/65
== END 2022-03-10 18:00 | disposition home or self-care (01) ==
LOC: EDUNIT# 14:36 → ER 14:38
DX: S30.0XXA Contusion of lower back and pelvis, initial encounter (principal); M25.552 Pain in left hip; Z28.310 Unvaccinated for COVID-19; V80.010A Animal-rider injured by fall from or being thrown from horse in noncollision accident, initial encounter
CPT/HCPCS: 36415; 71045; 72131; 72170; 74177; 80053; 85025

== ENCOUNTER → 2022-03-13 | Outpatient (CLI) | payer BC ==
[~2022-03-13] MED LIST changes: +OXYC1TAB16 PO
--- NOTE | 2022-03-13 15:54 | Diagnostic Imaging Report ---
INDICATION: Chest pain, thrown from horse. PA and lateral chest obtained at 11:51 a.m. and compared to 03/10/2022. FINDINGS: Heart and mediastinal silhouette are normal in appearance. There is no pneumothorax or pleural fluid. There is no overt bony abnormality in the chest. There is bibasilar linear atelectatic change. IMPRESSION: Bibasilar subsegmental atelectasis. No pneumothorax or pleural fluid or consolidation. Dictated by: Dictated on workstation # [id number]
--- NOTE | 2022-03-13 16:34 | Diagnostic Imaging Report ---
INDICATION: Pain. COMPARISON: Imaging from same date and CT of the cervical spine dated 11/20/2019. TECHNIQUE: Two radiographs of the left shoulder dated 03/13/2022. FINDINGS: Moderate degenerative changes of the acromioclavicular joint. Sclerotic lesion within the glenoid is again identified and not significantly changed since 2019. Mildly displaced posterolateral left seventh rib fracture. No additional fracture or dislocation. No destructive osseous process. No suspicious radiopaque foreign body. IMPRESSION: Mildly displaced acute posterolateral left seventh rib fracture. No large-volume pleural effusion or pneumothorax. Moderate degenerative changes within the acromioclavicular joint. Dictated by: Dictated on workstation # [id number]
--- NOTE | 2022-03-13 16:37 | Diagnostic Imaging Report ---
INDICATION: Pain after being thrown off horse. COMPARISON: Imaging from the same date as well as radiograph of the chest from 03/10/2022. TECHNIQUE: Two radiographs of the left-sided ribs dated 03/13/2022. FINDINGS: Mild degenerative changes involving the acromioclavicular joint. Mildly displaced acute appearing posterolateral left seventh rib fracture. No additional displaced or healing left-sided rib fracture. Minimal opacities within the peripheral left lung base. No large left-sided pneumothorax. Surgical clips in the right upper abdomen. IMPRESSION: Mildly displaced posterolateral left seventh rib fracture, appearing acute. No large-volume pleural effusion or pneumothorax. Mild left basilar opacities, potentially related to contusion versus atelectasis or less likely pneumonitis. Dictated by: Dictated on workstation # [id number]
--- NOTE | 2022-03-13 17:58 | Diagnostic Imaging Report ---
INDICATION: Left hip pain post injury. AP and oblique views of the left hip are obtained. No fracture or acute bony abnormality seen. There is some chronic irregularity of the acetabular roof with may be developmental. IMPRESSION: No acute fracture of the left hip. Dictated by: Dictated on workstation # [id number]
--- NOTE | 2022-03-13 18:05 | Diagnostic Imaging Report ---
INDICATION: Back pain post falling from horse. TECHNIQUE: AP and lateral views and oblique views of the lumbar spine are obtained. FINDINGS: The lumbar vertebrae appear normal in height and alignment. There is no fracture or subluxation or compression deformity. There are minor osteophytes at L4. IMPRESSION: Minor degenerative findings with no acute-appearing abnormality in the lumbar spine. Dictated by: Dictated on workstation # [id number]
--- NOTE | 2022-03-13 18:10 | Diagnostic Imaging Report ---
INDICATION: Neck pain, status post fall from horse. AP, odontoid, and lateral views of the cervical spine are obtained. FINDINGS: Cervical vertebrae are normal in height and alignment. There is disc space narrowing and osteophyte formation at C5-C6. There is no acute fracture or subluxation. IMPRESSION: Degenerative changes at C5-C6 with no acute abnormality in the cervical spine. Dictated by: Dictated on workstation # [id number]
== END ==
LOC: RAD FS 11:22
PROVIDERS: ATTEND Family Medicine
DX: M25.511 Pain in right shoulder (principal); M25.512 Pain in left shoulder; R07.81 Pleurodynia; M25.552 Pain in left hip; M53.3 Sacrococcygeal disorders, not elsewhere classified; M54.2 Cervicalgia; V80.010S Animal-rider injured by fall from or being thrown from horse in noncollision accident, sequela; M54.50 Low back pain, unspecified
CPT/HCPCS: 71046; 71100; 72040; 72110; 73030; 73502

== ENCOUNTER → 2022-09-30 | Outpatient (CLI) | payer BC ==
--- NOTE | 2022-09-30 18:54 | Diagnostic Imaging Report ---
MRI RT LOWER EXT JOINT W/O TECHNIQUE: Multiplanar, multisequence MR imaging of the right knee was performed without contrast. COMPARISON: None available. INDICATION: Knee pain. FINDINGS: MENISCI Medial meniscus: Normal. Lateral meniscus: Normal. LIGAMENTS ACL: Intact. PCL: Intact. MCL: Intact. LCL: The lateral collateral ligamentous complex is intact. EXTENSOR MECHANISM The extensor mechanism is intact. CARTILAGE Medial compartment: Medial compartment articular cartilage is well preserved without focal high-grade chondromalacia. Lateral compartment: The lateral compartment articular cartilage is preserved without high-grade chondromalacia. Patellofemoral compartment: Multifocal partial-thickness chondral fibrillation throughout the medial patellar facet. BONE No fracture, stress fracture or osteonecrosis. SOFT TISSUE No knee effusion or Hinojosa's cyst. IMPRESSION: 1. 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 Medial and lateral compartment articular cartilage is well preserved. 2. No meniscal tear. Dictated by: Dictated on workstation # [id number]
== END ==
LOC: RAD 14:40
PROVIDERS: ATTEND Family Medicine
DX: M17.11 Unilateral primary osteoarthritis, right knee (principal)
CPT/HCPCS: 73721

== ENCOUNTER 2023-01-26 14:19 | Emergency (ER) | payer SELFPAY ==
[~2023-01-26] VITALS: Ht 180 cm; Wt 77.0 kg
--- NOTE | 2023-01-26 14:38 | ED Lower Extremity ---
General Chief Complaint: Lower Extremity Stated Complaint: INJ LEFT FOOT AND BACK Source: patient Exam Limitations: no limitations History of Present Illness Date Seen by Provider: Jan 26, 2023 Time Seen by Provider: 14:31 Initial Comments 52-year-old female presents to the ER with complaint of left ankle and left foot pain after a fall. She also complains of left lower back pain from the fall. Left ankle appears swollen, swelling also noted to left foot near fifth digit. Patient is tender to palpation in left lower back. No vertebral tenderness. No tenderness over pelvis. Allergies and Home Medications Allergies Coded Allergies: latex (Verified Allergy, Unknown, 01/26/23) Patient Home Medication List Home Medication List Reviewed: Yes Cyclobenzaprine HCl (Cyclobenzaprine HCl) 10 Mg Tablet, 10 MG PO Q8H PRN for SPASMS Prescribed by: RASHMI LOPEZ on 11/20/192111 Diclofenac Submicronized (Zorvolex) 35 Mg Capsule, (Reported) Entered as Reported by: MEAGHAN LAM on 12/22/17 0809 Estradiol (Estradiol Tablet) 2 Mg Tablet, (Reported) Entered as Reported by: MEAGHAN LAM on 12/22/17 08 Ibuprofen (Ibuprofen) 800 Mg Tablet, 800 MG PO Q8H PRN for PAIN Prescribed by: RASHMI LOPEZ on 11/20/192111 Oxycodone HCl/Acetaminophen (Percocet 7.5-325 mg Tablet) 1 Each Tablet, 1 TAB PO Q6H PRN for PAIN-MODERATE Prescribed by: EVANS STARR on 03/10/22 1644 Oxycodone HCl/Acetaminophen (Percocet 5-325 mg Tablet) 1 Each Tablet, 1 TAB PO Q4H Prescribed by: Shilpi Khalil on 01/26/23 1535 Review of Systems Constitutional: see HPI Past Evjzryc-Muwmag-Cgkmah Hx Seasonal Allergies Seasonal Allergies: No Past Medical History Gallbladder, Hysterectomy, Orthopedic Respiratory: No Cardiac: No Neurological: No STRUCTURAL IRONWORKER History: Hysterectomy Genitourinary: No Gastrointestinal: Yes (GASTRIC SLEEVE) Musculoskeletal: Yes (RIGHT ANKLE AND LEG ) Fractures HEENT: No Cancer: No Psychosocial: No Integumentary: No Blood Disorders: No Physical Exam Vital Signs Vital Signs - First Documented 01/26/23 14:25 Temp 36.4 Pulse 74 Resp 18 B/P (MAP) 127/84 (98) Pulse Ox 97 Capillary Refill : Height, Weight, BMI Height: 6'0" Weight: 135lbs. oz. 61.809883jl; 24.00 BMI Method:Stated General Appearance: WD/WN, no apparent distress Neck: supple, normal inspection Cardiovascular: regular rate, rhythm Respiratory: lungs clear, normal breath sounds, no respiratory distress, no accessory muscle use Back: no vertebral tenderness, other (Muscle tenderness left lower back) Ankles: left ankle limited range of motion, left ankle pain, left ankle soft tissue tenderness, left ankle swelling Feet: left foot bone tenderness, left foot pain, left foot soft tissue tenderness, left foot swelling, left foot other (Cap refill less than 2 seconds, sensation intact distally, pulses intact) Neurologic/Psychiatric: alert, normal mood/affect Skin: normal color, warm/dry Progress/Results/Core Measures Results/Orders My Orders Orders - SHILPI VANEGAS APRN Foot, Left, 3 Views (01/26/23 14:35) Ankle, Left, 3 Views (01/26/23 14:35) Oxycodone/Apap 10/325mg Tablet (Oxycodon (01/26/23 15:30) Medications Given in ED Current Medications Medications Dose Ordered Sig/Moisés Route Start Time Stop Time Status Last Admin Dose Admin Oxycodone/ Acetaminophen 1 tab ONCE ONCE PO 01/26/23 15:30 01/26/23 15:31 DC 01/26/23 16:00 1 TAB Vital Signs/I&O 01/26/23 01/26/23 14:25 16:00 Temp 36.4 Pulse 74 74 Resp 18 18 B/P (MAP) 127/84 (98) 127/84 Pulse Ox 97 97 Progress Progress Note : Progress Note Patient seen and evaluated, resting comfortably in recliner, no acute distress. Based on exam and symptoms, x-ray of left ankle and left foot ordered. 1529 imaging reviewed. Foot x-ray shows oblique longitudinal fracture at the midshaft of the left fifth metatarsal. Ankle x-ray shows no acute fracture, does show degenerative type calcaneal enthesopathy. Results discussed with patient. Will place patient on walking boot and provide crutches. Instructed to follow-up with orthopedics. Percocet ordered. Will discharge with prescription for Percocet. Patient reports itching with hydrocodone, states she has taken Percocet without issue before. Discharge instructions and return precautions provided. Diagnostic Imaging Diagonstic Imaging: Xray Plain Films/CT/US/NM/MRI: other (foot) Comments [facility], [place] NAME: ROS[facility] MONSON [facility] REC#: [id number] PT STATUS: REG ER : 1970 PHYSICIAN: SHILPI VANEGAS APRN ADMIT DATE: 01/26/23/ER Draft Date of Exam:01/26/23 FOOT, LEFT, 3 VIEWS INDICATION: Left foot pain. COMPARISON: None. DISCUSSION: Three views of the left foot were obtained. There is an oblique nondisplaced fracture involving the midshaft of the left 5th metatarsal. No dislocation. No other osseous abnormality. Mild soft tissue swelling. No significant degenerative disease. IMPRESSION: Oblique longitudinal fracture of the midshaft of the left 5th metatarsal. Dictated on workstation # [id number] Dict: 01/26/23 1514 Trans: 01/26/23 1516 [facility] [id number] Interpreted by: DON ARCOS MD Electronically signed by: Diagonstic Imaging: Xray Plain Films/CT/US/NM/MRI: ankle Comments [facility], [place] NAME: ROSSY MONSON [facility] REC#: [id number] PT STATUS: REG ER : 1970 PHYSICIAN: SHILPI VANEGAS APRN ADMIT DATE: 01/26/23/ER Signed Date of Exam:01/26/23 ANKLE, LEFT, 3 VIEWS EXAMINATION: Left ankle radiographs, 3 views. COMPARISON: None. HISTORY: 52-year-old female, left ankle pain and swelling. FINDINGS: There is a calcaneal heel spur. There is mild degenerative type enthesopathy at the Achilles tendon insertion. There is no acute fracture. The alignment of the ankle mortise is unremarkable. There is no tibiotalar joint effusion. IMPRESSION: . 1. Acute bony abnormality in the left ankle. 2. Degenerative type calcaneal enthesopathy. Dictated by: Dictated on workstation # [id number] Dict: 01/26/23 1514 Trans: 01/26/23 1520 [facility] [id number] Interpreted by: RADHA HAN MD Electronically signed by: RADHA HAN MD 01/26/23 1520 Departure Impression Primary Impression: Fracture of fifth metatarsal bone of left foot Additional Impression: Ankle sprain Disposition: 01 HOME, SELF-CARE Condition: Stable Departure-Patient Inst. Decision time for Depature: 15:33 Referrals: SELFCINDY MD (PCP) Primary Care Physician LIAT AZEVEDO MD, MICHAEL P MD Patient Instructions: Foot Fracture ED Add. Discharge Instructions: Wear the walking boot at all times, use the crutches if needed to help relieve pressure from your foot. Take Percocet as needed for pain, it can you sleepy and cause constipation, only take when needed. You may also take 800 mg of ibuprofen every 8 hours with food as needed for pain. Follow-up with Dr. Argueta, Dr. Azevedo, or an orthopedic doctor of your choice. Return for any new, concerning, or worsening symptoms. All discharge instructions reviewed with patient and/or family. Voiced understanding. Scripts Oxycodone HCl/Acetaminophen (Percocet 5-325 mg Tablet) 1 Each Tablet 1 TAB PO Q4H for PAIN-MODERATE MDD 6 TABS for 7 Days, #12 TAB 0 Refills Prov: SHILPI VANEGAS APRN 01/26/23 SHILPI VANEGAS APRN Jan 26, 2023 14:38
--- NOTE | 2023-01-26 15:17 | Diagnostic Imaging Report ---
INDICATION: Left foot pain. COMPARISON: None. DISCUSSION: Three views of the left foot were obtained. There is an oblique nondisplaced fracture involving the midshaft of the left 5th metatarsal. No dislocation. No other osseous abnormality. Mild soft tissue swelling. No significant degenerative disease. IMPRESSION: Oblique longitudinal fracture of the midshaft of the left 5th metatarsal. Dictated by: Dictated on workstation # [id number]
--- NOTE | 2023-01-26 15:18 | Diagnostic Imaging Report ---
EXAMINATION: Left ankle radiographs, 3 views. COMPARISON: None. HISTORY: 52-year-old female, left ankle pain and swelling. FINDINGS: There is a calcaneal heel spur. There is mild degenerative type enthesopathy at the Achilles tendon insertion. There is no acute fracture. The alignment of the ankle mortise is unremarkable. There is no tibiotalar joint effusion. IMPRESSION: . 1. Acute bony abnormality in the left ankle. 2. Degenerative type calcaneal enthesopathy. Dictated by: Dictated on workstation # [id number]
[2023-01-26] MEDS ORDERED: oxyCODONE/ACETAMINOPHEN 10/325MG TABLET PO ONE (15:30)
[2023-01-26] MEDS ORDERED: OXYC1TAB87 PO (15:35)
[2023-01-26 16:00] VITALS: BP 127/84
== END 2023-01-26 16:02 | disposition home or self-care (01) ==
LOC: EDUNIT# 14:19 → ER 14:23
DX: S92.352A Displaced fracture of fifth metatarsal bone, left foot, initial encounter for closed fracture (principal); S93.402A Sprain of unspecified ligament of left ankle, initial encounter; M54.50 Low back pain, unspecified; Z91.040 Latex allergy status; Z88.5 Allergy status to narcotic agent; W17.89XA Other fall from one level to another, initial encounter
CPT/HCPCS: 73610; 73630

== ENCOUNTER 2023-02-27 05:30 | Outpatient (CLI) | payer SELFPAY ==
[~2023-02-27] VITALS: Ht 180.3 cm; Wt 77.3 kg
[~2023-02-27 05:30] MED LIST changes: +OXYC1TAB87 PO
[2023-02-27] MEDS ORDERED: DIPH25CA79 PO (11:54)
[2023-02-27] MEDS ORDERED: CALC-308 PO (11:54)
[2023-02-27] MEDS ORDERED: ROPI1TAB46 PO (11:54)
[2023-02-27] MEDS ORDERED: SERT-413 PO (11:54)
[2023-02-27] MEDS ORDERED: NF-VITD400 PO (11:54)
== END 2023-02-27 13:45 | disposition home or self-care (01) ==
LOC: PREOP 05:30
PROVIDERS: ATTEND Podiatrist Foot & Ankle Surgery
DX: Z01.818 Encounter for other preprocedural examination (principal)

== ENCOUNTER 2023-03-07 07:37 | Day surgery (SDC) | payer SELFPAY ==
[2023-03-07] VITALS (12 sets, daily range): BP systolic 115–135; BP diastolic 68–86
[~2023-03-07] VITALS: Ht 180.3 cm; Wt 77.3 kg
[~2023-03-07 07:37] MED LIST changes: +CALC-308 PO; +DIPH25CA79 PO; +NF-VITD400 PO; +ROPI1TAB46 PO; +SERT-413 PO
[2023-03-07] MEDS ORDERED: LIDOCAINE 1% INJ 20 ML VIAL ONE (08:33)
[2023-03-07] MEDS ORDERED: BUPIVACAINE 0.5% 30 ML VIAL ONE (08:33)
[2023-03-07] MEDS ORDERED: dexAMETHasone INJ 10 MG/ML 1 ML VIAL ONE ×2 (08:33→09:45)
[2023-03-07] MEDS ORDERED: ceFAZolin INJECTION 1,000 MG in NS (IVPB) 50 ML 50 ML IV ONE (08:45)
[2023-03-07] MEDS ORDERED: LACTATED RINGERS 1,000 ML 1,000 ML IV PRN (08:45)
[2023-03-07] MEDS ORDERED: CLINDAMYCIN 600 MG/50 ML IVPB 50 ML IV ONE ×2 (08:56→09:00)
[2023-03-07] MEDS ORDERED: ONDANSETRON INJECTION 4 MG/2 ML (SDV) ONE (09:45)
[2023-03-07] MEDS ORDERED: proPOfol INJECTION 200 MG/20 ML VIAL IV ONE (09:45)
[2023-03-07] MEDS ORDERED: fentaNYL INJECTION 100 MCG/2 ML VIAL ONE (09:45)
[2023-03-07] MEDS ORDERED: LIDOCAINE PF 2% 5 ML VIAL ONE (09:45)
[2023-03-07] MEDS ORDERED: MIDAZOLAM INJ 2 MG/2 ML VIAL ONE (09:46)
--- NOTE | 2023-03-07 10:11 | Progress Note-Pre Operative ---
Pre-Operative Progress Note Date of Available H&P: Mar 07, 2023 Date H&P Reviewed: Mar 07, 2023 Time H&P Reviewed: 10:10 Pre-Operative Diagnosis: Fracture to the left 5th metatarsal FLAVIA PEOPLES DPM Mar 07, 2023 10:11
[2023-03-07] MEDS ORDERED: SEVOFLURANE (ULTANE) 15 ML INHAL SOLN ONE (11:29)
--- NOTE | 2023-03-07 11:38 | Progress Note-Post Operative ---
Post-Operative Progess Note Surgeon (s)/Mold Repair Technician (s) Surgeon FLAVIA PEOPLES DPM Mold Repair Technician: none Pre-Operative Diagnosis Fracture to the left 5th metatarsal Post-Operative Diagnosis Same Procedure & Operative Findings Date of Procedure 03/07/23 Procedure Performed/Findings ORIF left 5th metatarsal Anesthesia Type General Estimated Blood Loss Estimated blood loss (mL): Minimal Specimens/Packing Specimens Removed none FLAVIA PEOPLES DPM Mar 07, 2023 11:38
[2023-03-07] MEDS ORDERED: HYDROmorphone INJECTION 2 MG/ML VIAL IV ONE (11:45)
[2023-03-07] MEDS ORDERED: ONDANSETRON INJECTION 4 MG/2 ML (SDV) IVP PRN (11:45)
[2023-03-07] MEDS ORDERED: OXYC1TAB87 PO (11:45)
[2023-03-07] MEDS ORDERED: LACTATED RINGERS 1,000 ML 1,000 ML IV SCH (11:45)
[2023-03-07] MEDS ORDERED: morphine INJ 10 MG/ML 1ML (SYR OR VIAL) IVP ONE (11:45)
[2023-03-07] MEDS ORDERED: CLIN150C2 PO (11:45)
--- NOTE | 2023-03-07 11:46 | Anesthesia-General Post-Op ---
General Patient Condition Mental Status/LOC: Same as Preop Cardiovascular: Satisfactory Nausea/Vomiting: Absent Respiratory: Satisfactory Pain: Controlled Complications: Absent Post Op Complications Complications None Follow Up Care/Instructions Patient Instructions None needed. Anesthesia/Patient Condition Patient Condition Patient is awake in PACU and doing well. She is ready to return to [facility] with stable vital signs, no apparent adverse anesthesia problems. No complications reported per nursing. COLEEN BROOKS DO Mar 07, 2023 11:46
[2023-03-07] MEDS ORDERED: oxyCODONE/ACETAMINOPHEN 5/325MG TABLET ONE (12:42)
[2023-03-07] MEDS ORDERED: oxyCODONE/ACETAMINOPHEN 5/325MG TABLET PO ONE (12:45)
--- NOTE | 2023-03-07 13:38 | Physical Therapy Ortho Eval ---
PT Orthopedic Evaluation Type of Surgery Prior Level of Function Current Living Status: Friend Locomotion (Upon Admit): Independent Established Durable Medical Eq: Crutches Subjective Entry Into Home: Stairs With Railing Steps Into Home: 3 Motor Control Motor Control: Motor Control WNL ROM ROM: WFL, except focal deficit Strength Strength: Gen Weak,No Focal Deficit Transfer SCALE: Activities may be completed with or without assistive devices. 7-Hcaradoocl-bbshekj completes the activity by him/herself with no assistance from a helper. 5-Set-up or Clean-up Assistance-helper sets up or cleans up; patient completes activity. [place] assists only prior to or following the activity. 4-Supervision or Touching Assistance-helper provides verbal cues and/or touching/steadying and/or contact guard assistance as patient completes activity. Assistance may be provided throughout the activity or intermittently. 3-Partial/Moderate Assistance-helper does LESS THAN HALF the effort. [place] lifts, holds or supports trunk or limbs, but provides less than half the effort. 2-Substantial/Maximal Assistance-helper does MORE THAN HALF the effort. [place] lifts or holds trunk or limbs and provides more than half the effort. 9-Fyuskvgti-ycwcgn does ALL the effort. Patient does none of the effort to complete the activity. Or, the assistance of 2 or more helpers is required for the patient to complete the activity. If activity was not attempted, code reason: 7-Patient Refused. 9-Not Applicable-not attempted and the patient did not perform the activity before the current illness, exacerbation or injury. 10-Not Attempted due to Environmental Limitations-(lack of equipment, weather restraints, etc.). 88-Not Attempted due to Medical Conditions or Safety Concerns. Transfers (B, C, W/C) (QC): 4 Gait Gait Assistive Device: Crutches Right Lower Extremity: Right Weight Bearing Status RLE: Full Weight Bearing Left Lower Extremity: Left Weight Bearing Status LLE: Non Weight Bearing Other Weight Bearing Inst.: Heel contact for balance and transfers only Stairs #of Steps: 3 Walking Assistive Device: Crutches Assessment/Goals Goal Time Frame: 1 Visit Safe Ambulation: Yes Plan Treatment Plan: Discharge PT/Family Agrees to Plan: Yes Time Time In: 1317 Time Out: 1330 Total Billed Treatment Time: 13 Billed Treatment Time Visit, MARIELOS SAMPSON PT Mar 07, 2023 13:38
--- NOTE | 2023-03-07 17:19 | Diagnostic Imaging Report ---
EXAMINATION: Left foot, two views. HISTORY: Postop. COMPARISON: 01/26/2023. FINDINGS: There are two screws within a healing fracture of the left fifth metatarsal. Alignment is similar to preoperative exam. No other fracture is seen. No dislocation. IMPRESSION: 1. Healing oblique fracture of the left fifth metatarsal with two screws present. Dictated by: Dictated on workstation # [id number]
--- NOTE | 2023-03-07 19:41 | OPERATIVE REPORT ---
DATE OF SERVICE: 03/07/2023 SURGEON: Dinora Peoples DPM. PREOPERATIVE DIAGNOSIS: Fracture, left fifth metatarsal. POSTOPERATIVE DIAGNOSIS: Fracture, left fifth metatarsal. PROCEDURE: Open reduction and internal fixation of left fifth metatarsal. WOUND CLASS: Clean. ANESTHESIA: General. HEMOSTASIS: Pneumatic thigh tourniquet at 250 mmHg. INDICATIONS: This 52-year-old female presents complaining of a painful left foot. Conservative therapy is met with unsatisfactory results and after reviewing x-rays and nonhealing over several weeks, the patient is agreeable to surgical intervention after risks and complications were discussed at length. No guarantees were extended to the patient and she is willing to proceed. DESCRIPTION OF PROCEDURE: The patient was brought back to the operating room table and placed in a secure supine position. General anesthetic was then induced. Local anesthetic was also introduced to the left foot utilizing a 1:1 mixture of 1% Xylocaine and 0.5% Marcaine, a total of 10 mL in a reverse Unger block. The thigh tourniquet was placed on the left lower extremity over several layers of padding. The left foot was then prepped and draped in normal sterile manner. The left foot was then elevated allowed to exsanguinate after which the tourniquet was inflated to 250 mmHg. Attention was then directed to the dorsal lateral aspect of the left fifth metatarsal where a 4-cm longitudinal linear incision was created. The incision was deepened in the same plane with great care to identify and retract all vital neurovascular structures. Only necessary blood vessels were cauterized. Subperiosteal dissection was carried out just inferior to the abductor digiti minimi muscle belly. The dissection was carried out to bone where the oblique fracture was identified, both direct visualization as well as with the intraoperative C-arm. Next, utilizing standard AO technique, two 2.7 screws were driven across the fracture site from posterior inferior lateral to anterior superior medial. Excellent reduction of the fracture was then identified both visually and with C-arm. The first group was distal and it was a 2.7 Synthes screw of 16 mm of length. The second was a 12 mm from a more lateral, inferior to superior medial orientation of 12 mm length. The wound was flushed with copious amounts of normal saline throughout the procedure and closure was then performed in layers. Deep closure was performed with 3-0 Vicryl, superficial with 4-0 Vicryl, skin closure with 4-0 Prolene in a horizontal mattress type stitch. Postoperative injection consisted of 15 mL of 0.5% Marcaine injected in a reverse Unger block. Postoperative dressing consisted of Betadine-soaked Adaptic, sterile 4 x 4's, sterile Kerlix, all secured with a Coban wrap. The patient tolerated the anesthesia and procedure well and was transferred from the operating room to the recovery room with vital signs stable and vascular status intact to all digits of the left foot. She is to follow up in our office in 10 days' period of time or sooner, if necessary. She was given a prescription for clindamycin as well as Percocet. The patient is to be nonweightbearing to left lower extremity. She is going to utilize the Cam walker as a precaution, but she was instructed to be nonweightbearing on the left lower extremity. Job ID: [id number] DocumentID: [id number] Dictated Date: 03/07/2023 11:55:42 Sourcer Date: 03/07/2023 19:39:00 Dictated By: DINORA PEOPLES DPM
== END 2023-03-07 13:50 | disposition home or self-care (01) ==
LOC: SDC 07:37
PROVIDERS: ATTEND Podiatrist Foot & Ankle Surgery
DX: S92.352G Displaced fracture of fifth metatarsal bone, left foot, subsequent encounter for fracture with delayed healing (principal); E55.9 Vitamin D deficiency, unspecified; R30.0 Dysuria; X58.XXXD Exposure to other specified factors, subsequent encounter
CPT/HCPCS: 73620; 87081